=== PATIENT | female | born 1970 | race Asian ===

== ENCOUNTER 2017-07-16 11:09 | Emergency (ER) | payer OTHER ==
[~2017-07-16] VITALS: Ht 152.4 cm; Wt 56.6 kg
[~2017-07-16 11:09] MED LIST: ULTRAM50 MG PO
[2017-07-16 12:21] LABS: HEMATOCRIT 38.8 % (36.0-46.0); MCH 30.3 PG (29.0-34.0); MCV 89.2 FL (83-99); MEAN PLAT.VOLUME 9.4 uM^3 (9.5-12.4); PLATELET COUNT 292 K/uL (156-360); RBC DIS.WIDTH-CV 12.8 % (11.8-14.6); RBC DIS.WIDTH-SD 42.5 % (39-53); RED BLOOD COUNT 4.35 M/uL (3.80-5.20)
[2017-07-16 12:33] LABS: CHLORIDE 108 mEq/L (99-109); POTASSIUM 4.1 mEq/L (3.7-5.4); SODIUM 139 mEq/L (136-147)
[2017-07-16 12:34] LABS: GLUCOSE 119 mg/dL (70-99)
[2017-07-16 12:36] LABS: ANION GAP 7 MEQ/L (2-14)
[2017-07-16 12:38] LABS: GFR ESTIMATE (CALCULATED) > 59 mL/min/
[2017-07-16 12:39] LABS: UREA NITROGEN (BUN) 11 mg/dL (9-23)
[2017-07-16 12:43] LABS: TROP-I INTERPRETATION NEGATIVE; TROPONIN-I < 0.01 ng/mL (0.0-0.30)
[2017-07-16] MEDS ORDERED: MOTRIN600 MG PO (13:08)
[2017-07-16 13:27] VITALS: BP 103/87
== END 2017-07-16 13:28 | disposition home or self-care (01) ==
LOC: EME 11:09
DX: R07.2 Precordial pain (principal); R00.0 Tachycardia, unspecified; I45.10 Unspecified right bundle-branch block; E78.5 Hyperlipidemia, unspecified
CPT/HCPCS: 71020; 80048; 84484; 85027; 93005